=== PATIENT | male | born 1980 | race Caucasian/White ===

== ENCOUNTER 2023-01-07 19:42 | Emergency (ER) | payer BC ==
[2023-01-07] MEDS ORDERED: Take Home: Cyclobenzaprine 10 MG Tab, 4 Tab Pack PO ONE ×2 (20:23→20:35)
[2023-01-07] MEDS ORDERED: Take Home: Acetaminophen/HYDROcodone 325-5 MG, 5 Tab Pack PO ONE ×2 (20:23→20:35)
== END 2023-01-07 20:40 | disposition home or self-care (01) ==
LOC: VM.ED 19:42
DX: M54.50 Low back pain, unspecified (principal); Z72.0 Tobacco use
CPT/HCPCS: 99283; A9270-GY